=== PATIENT | male | born 1975 | race Caucasian/White ===

== ENCOUNTER 2016-09-24 05:12 | Emergency (ER) | payer BC ==
[2016-09-24 05:51] LABS: Hematocrit 44.8 % (42.0-52.0); Hemoglobin 15.4 gm/dL (13.5-18.0); Mean Corpuscular Hemoglobin 33.3 pg (27-31); Mean Corpuscular Hgb Conc 34.4 g/dl (32-36); Mean Platelet Volume 8.8 fl (6.0-9.5); Neutrophil # 4.3 K/mm3 (1.3-6.0); Neutrophil % 61.7 % (42-75.0); Platelet Count 234 K/mm3 (150-450); Red Blood Count 4.62 M/mm3 (4.7-6.0)
--- NOTE | 2016-09-24 05:52 | ERNOTE ---
Medical Problem HPI - Narrative Date of Service: 09/24/16 - General Chief Complaint: General Assessment Time Seen by Provider: 09/24/16 05:48 Source: patient, family Exam Limitations: no limitations - Immun/Allergies/Home Medications Immunizations: IMMUNIZATION HX Immunizations Up to Date Yes History of Influenza Vaccine No Hx Pneumococcal Vaccination No Allergies/Adverse Reactions: Allergies hydrocodone Allergy (Intermediate, Verified 09/24/16 05:33) Other RASH oxycodone Allergy (Intermediate, Verified 09/24/16 05:33) Other RASH prednisone Allergy (Intermediate, Verified 09/24/16 05:33) Other RASH Home Medications: HOME MEDICATIONS Clonazepam [Klonopin] 1 mg PO TID 10/25/13 [Last Taken Unknown] FLUoxetine HCL [Prozac] 60 mg PO DAILY 10/25/13 [Last Taken 10/24/13] traZODone HCL [Desyrel] 100 mg PO HS PRN 04/08/16 [Last Taken Unknown] Melatonin/Pyridoxine HCl (B6) [Melatonin 5 mg Tablet] 1 each PO HS 09/24/16 [ Last Taken Unknown] Multivitamin [One Daily Multivitamin] 1 each PO DAILY 09/24/16 [Last Taken Unknown] - History of Present History Narrative: STATES HE AWAKENED HER FROM A DEEP SLEEP ACTING 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 SHE TRIED TO AWAKEN HIM AND HE JUST MUTTERED AT HER WITHOUT MAKING SENSE AND IT WAS 20 MINS BEFORE HE AWAKENED. HE SAYS HE FEELS FINE EXCEPT HE IS TIRED. HE IS CURRENTLY A & O . HE DID HAVE A SEIZURE IN 2010 THAT HE SAYS WAS FULLY EVALUATED AND NOTHING FOUND. HE HAS HAD SOME INCREASED DEPRESSION LATELY AND SAW DR SANTOYO LAST WEEK AND WHICH TIME HE STOPPED ETOH WHICH HE HAD BEEN DOING FAIRLY HEAVILY FOR THE PAST 2 YEARS. HE ALSO HAD THE DOSE OF HIS ANXIETY MED, CLONAZEPAM INCREASED , FROM 1MG TO 2MG, AND WAS STARTED ON FLUOXETINE 60 MG. AND HAD HYDROCODONE 30 MG ER ADDED. HE DENIES ANY SYMPTOMS OF DT'S SINCE HE STOPPED ETOH LAST WEEK. Review of Systems - Review of Systems Constitutional: Present: See HPI EYE: Present: no symptoms reported ENT: Present: no symptoms reported Respiratory: Present: no symptoms reported Cardiology: Present: edema Gastrointestinal/Abdominal: Present: no symptoms reported Genitourinary: Present: no symptoms reported Musculoskeletal: Present: no symptoms reported Skin: Present: no symptoms reported Neurological: Present: See HPI Endocrine: Present: no symptoms reported Hematologic/Lymphatic: Present: no symptoms reported Psych: Present: See HPI All Other Systems: All systems neg except as marked - Patient's Past Medical History Patient History - Medical: Anxiety, Depression, Seizures Patient History - Cardiac/Respiratory: No pertinent hx Patient History - Cancer: No Hx of Cancer Patient History - Surgical Procedures: T & A, Other Patient History - Other: None - Family History Mother Family History - Medical: Arthritis, Kidney stone Family History - Cardiac/Respiratory: No pertinent hx Father Family History - Medical: Arthritis Family History - Cardiac/Respiratory: No pertinent hx Grandmother-Maternal Family History - Medical: No pertinent hx Family History - Cardiac/Respiratory: Myocardial Infarction - Social History Living Situations: home Abuse History: No History of abuse Psych History: Hx of Anxiety, Hx of Depression Smoking Status: Never smoker Have you smoked in the past 12 months: No Do you dip or chew tobacco: No Alcohol Use: heavy Drug Use: none - Immunizations Immunizations Up to Date: Yes Hx Pneumococcal Vaccination: No History of Influenza Vaccine: No Physical Exam - Physical Exam General Appearance: Present: wd/wn, alert - WANTS TO SLEEP BUT AROUSES EASILY AND IS COOPERATIVE, A & O . Eye Exam: Normal inspection: bilateral, PERRL: bilateral, EOMI: bilateral Ears, Nose, Throat: Present: normal ENT inspection Neck: Present: normal inspection Respiratory: Present: no respiratory distress, normal breath sounds, no accessory muscle use, chest nontender, lungs clear Cardiovascular/Chest: Present: regular rate, rhythm, no murmur Extremity Exam: Present: normal inspection, normal range of motion Neurological Exam: Present: alert, oriented, normal mood/affect, supervisor glycerin II-XII nml as tested. Absent: motor weakness, disoriented to person, disoriented to time, disoriented to place, disoriented to situation DTR: N=norm/NB=norm/brisk/A=abs/DD=dull/dimin/HC=hyperactive: Knee (R): Normal, Knee (L): Normal Skin Exam: Present: normal color ED Progress - Results and Orders Patient's Lab Results:: I have reviewed the patient's lab results. Results and Orders: LABS AND URINE AND ETOH = NEG. UDS = + FOR OPIATES. - Vital Signs Patient's Vital Signs:: I have reviewed the patient's vital signs. Vital Signs: Vital Signs 09/24/16 05:16 Temperature 36.9 C Pulse Rate 62 Respiratory 16 Rate Blood Pressure 118/75 O2 Sat by Pulse 94 Oximetry - CT/Ultrasound CT/Ultrasound Narrative: HEAD CT / DR VANEGAS = NEG. - Progress/Reassessment Chief Complaint: General Assessment Progress:: Improved - Transfer of Care Expected Disposition: Discharge Departure - Departure Clinical Impression: Altered mental status, unspecified Qualifiers: Altered mental status type: transient alteration of awareness Qualified Code(s) : R40.4 - Transient alteration of awareness Disposition: Home Follow Up Needed Condition: Good Instructions: Seizure, Adult, Inpx-[id number] Additional Instructions: I AM NOT SURE THAT THIS SPELL TODAY REPRESENTS A SEIZURE BUT UNTIL IT IS BETTER EXPLAINED IT SHOULD BE TREATED SUCH AND HE SHOULD GET RECHECKED BY THE FAMILY DOCTOR. NO DRIVING OR SWIMMING ALONE OR CLIMBING UNTIL THEY HAVE CLEARED YOU FROM RISK. THIS MAY BE A PROBLEM OF MEDICATION SIDE EFFECT WHICH MAY NEED MEDICATION ADJUSTMENTS SO TALK WITH THE WHO STARTED YOUR MEDICATIONS. Referrals: Mary Aguero FNP [Primary Care Provider] -
[2016-09-24 06:01] LABS: Urine Bilirubin Negative (NEGATIVE); Urine Blood Negative /ul (NEGATIVE); Urine Ketone Negative (NEGATIVE); Urine Nitrite Negative (NEGATIVE); Urine Protein Negative (NEGATIVE); Urine Specific Gravity 1.025 SP.GR. (1.005-1.030); Urine Urobilinogen Normal (NORMAL)
[2016-09-24 06:07] LABS: ALT 29 U/L (19-67); AST 17 U/L (0-48); Albumin * 3.5 gm/dl (3.4-5.0); Alkaline Phosphatase * 44 U/L (50-170); Anion Gap 9.8 mmol/L (6.8-13.8); BUN/Creatinine Ratio 17.6 (9.0-21.6); Bilirubin, Total 0.3 mg/dL (0.0-1.1); Blood Urea Nitrogen 18 mg/dL (6-23); Ca. Corrected For Albumin 9.1 mg/dL (8.4-10.2); Carbon Dioxide 29.4 mmol/L (24-32.6); Chloride 106 mmol/L (97-106); Glucose * 103 mg/dL (70-110); Potassium 4.2 mmol/L (3.4-4.6); Sodium 141 mmol/L (132-142); Total Protein 6.7 gm/dL (6.2-8.2)
[2016-09-24 06:11] LABS: Cocaine Ur Negative (NEGATIVE); Urine Barbiturate Negative (NEGATIVE); Urine Benzodiazepines Negative (NEGATIVE); Urine Opiates Positive (NEGATIVE); Urine PCP Negative (NEGATIVE); Urine THC Negative (NEGATIVE)
--- OUTSIDE RECORDS SUMMARY | 2016-09-24 06:17 | XMS REPORT | Continuity of Care Document ---
:1975 Author Organization [facility] ([facility]) Address [address] [place] [address] Phone [phone] Care Team Providers Name Role Phone Mary Aguero Primary Care Provider [phone] Source Comments This disclosure is being made pursuant to the Care Everywhere program, applicable federal and state laws, and may not contain all informaitonavailable regarding this patient.[facility] ([facility]) Active Allergies and Adverse Reactions Allergen Noted Date Severity Reactions Comments Prednisone 08/13/2016 Rash Current Medications Prescription Sig. Disp. Refills Start Date End Date Status HYDROcodone-acetaminophen Take 1 Tab by Active 5-325 mg per tablet mouth every 4 hours as needed. multivitamin tablet Take 1 Tab by Active mouth daily. melatonin 3 mg tablet Take 3 mg by mouth Active at bedtime. traZODone 100 mg tablet Take 100 mg by Active mouth at bedtime. Takes one-half tab at bedtime meloxicam 7.5 mg tablet Take 7.5 mg by Active mouth 2 times daily. clonazePAM 1 mg tablet Take 1 mg by mouth Active 3 times daily. cholecalciferol (VITAMIN Take 2,000 Units Active D3) 2,000 unit capsule by mouth daily. cyanocobalamin (VITAMIN Take 1,000 mcg by Active B-12) 1,000 mcg tablet mouth daily. vitamin B complex tablet Take 1 tablet by Active mouth daily. sulindac 200 mg tablet Take 200 mg by 3 05/21/2016 Active mouth 2 times daily with meals. FLUoxetine 60 mg tablet Take 60 mg by 5 08/09/2016 Active mouth every morning. Active Problems Patient Care Coordination Note with left knee claim from an injury at work on 07/12/2008. He was placed at [facility] on 07/02/2013. His knee pain is treated with periodic injections of local anesthetic with corticosteroid, or Synvisc/GelOne. Problem Noted Date H/O 05/21/2009 left knee arthroscopy with partial lateral meniscectomy and 06/2013 chondroplasty of the patella Left knee pain 10/01/2013 Last Assessment & Plan: Continue NSAIDs as prescribed by his primary care physician. Chondromalacia of patellofemoral joint 01/11/2013 Last Assessment & Plan: He has had a very good response to Synvisc. He was instructed to continue walking, but not progress to jogging for another two months. At the end of the second month, he can start to jog slowly. Hecan continue the treadmill for now, and can progress to an incline if he wishes. He needs to pay attention to what might cause his knee to be uncomfortable. Arthritis of knee, left 01/08/2013 Last Assessment & Plan: Formatting of this note may be different from the original. 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 MMI 07/02/2013 without restrictions. Last Assessment & Plan: Selvin Lance may continue to work without restrictions with regard to his right knee. History of diagnostics and therapeutics left knee 01/01/2013 Overview: 04/25/2002 prior to the workers compensation injury, patient complained of left knee pain off and on since 1995. X-rays of the left knee show mild degenerative joint disease particularly affecting th e patellofemoral and medial compartments which is slightly worse than x-rays obtained on 10/20/2000 and the patient was last seen for similar complaints. He states his left knee catches and gives way , he has patellofemoral arthralgia with crepitance, he has synovitis, directl pain, positive Marly testing and swelling. 05/21/2002 arthroscopic partial lateral meniscectomy, chondroplasty of the patella, and medial and lateral femoral condyles and lateral tibial plateau, and partial synovectomy. There were several sm all pieces of cartilage free floating in the suprapatellar space. There was grade 2/3 chondromalacia affecting both the medial and lateral facets of the patella. No evidence of tear or displacement of the medial meniscus. Grade one chondromalacia of the weightbearing surface of the medial femoral condyle. Grade 2 chondromalacia of the weightbearing surfaces of the lateral femoral condyle and l ateral tibial plateau. Chondroplasty of the lateral femoral condyle and lateral tibial plateau accomplished using combination of the orbital centimeter , turbo-whisker, and thermal probe. Chondroplas ty of the medial femoral condyles accomplished using a combination of turbo- whisker and thermal probe. 09/04/2008 MRI of the left knee, some abnormal appearanceof anterior horn of the lateral meniscus. 09/13/2008 injection of local anesthetic and corticosteroid. He later reported the injection worked for a week and a half and then his symptoms returned. 11/08/2008 left knee injected with Hyalgan. 11/15/2008 left knee injection with Hyalgan. 11/21/2008 left knee injected with Hyalgan. 11/28/2008 left knee injected with Hyalgan 05/21/2009 left knee arthroscopy with partial lateral meniscectomy and chondroplasty of the patella. Articular cartilage within the lateral compartment was intact and pristine. Articular cartilage w ithin the medial compartment was minimally degenerative. Patellofemoral joint had rather extensive grade 2-3 degenerative joint disease changes on the undersurface of the patella. 03/19/2013 [facility] left knee 10/01/2013 [facility] left knee Last Assessment & Plan: 04/25/2002 prior to the workers compensation injury, patient complained of left knee pain off and on since 1995. X-rays of the left knee show mild degenerative joint disease particularly affecting th e patellofemoral and medial compartments which is slightly worse than x-rays obtained on 10/20/2000 and the patient was last seen for similar complaints. He states his left knee catches and gives way , he has patellofemoral arthralgia with crepitance, he has synovitis, directly pain, positive Marly testing and swelling. 05/21/2002 arthroscopic partial lateral meniscectomy, chondroplasty of th e patella, and medial and lateral femoral condyles and lateral tibial plateau, and partial synovectomy. There were several small pieces of cartilage free floating in the suprapatellar space. There w as grade 2/3 chondromalacia affecting both the medial and lateral facets of the patella. No evidence of tear or displacement of the medial meniscus. Grade one chondromalacia of the weightbearing juliette face of the medial femoral condyle. Grade 2 chondromalacia of the weightbearing surfaces of the lateral femoral condyle and lateral tibial plateau. Chondroplasty of the lateral femoral condyle and l ateral tibial plateau accomplished using combination of the orbital centimeter , turbo-whisker, and thermal probe. Chondroplasty of the medial femoral condyles accomplished using a combination of turbo-whisker and thermal probe. 09/04/2008 MRI of the left knee, some abnormal appearanceof anterior horn of the lateral meniscus. 09/13/2008 injection of local anesthetic and corticosteroid. He later reported the injection worked for a week and a half and then his symptoms returned. 11/08/2008 left knee injected with Hyalgan. 11/15/2008 left knee injection with Hyalgan. 11/21/2008 left knee injected with Hyalgan. 11/28/2008 left knee injected with Hyalgan 05/21/2009 left knee arthroscopy with partial lateral meniscectomy and chondroplasty of the patella. Articular cartilage within the lateral compartment was intact and pristine. Articular cartilage w ithin the medial compartment was minimally degenerative. Patellofemoral joint had rather extensive grade 2-3 degenerative joint disease changes on the undersurface of the patella. Resolved Problems Problem Noted Date Resolved Date Back pain 06/04/2013 06/04/2013 Most Recent Encounters Date Type Specialty Providers Description 08/13/2016 Hospital Encounter Radiology Benjy Jean MD Dx: Hip pain 08/13/2016 Office Visit Orthopaedic Polo Salamanca MD Dx: Hip pain ( Primary Dx) 07/27/2016 Hospital Encounter Radiology Benjy Jean MD Chief Comp: Patient Reported Reason For Visit Social History Tobacco Use Types Packs/Day Years Used Date Never Smoker Smokeless Tobacco: Never Used Tobacco Cessation:Counseling Given: Yes Comments: Last Filed Vital Signs Vital Sign Reading Time Taken Blood Pressure 120/66 08/13/2016 9:27 AM CDT Pulse 70 08/13/2016 9:27 AM CDT Temperature 37 C (98.6 F) 08/13/2016 9:27 AM CDT Respiratory Rate - - Height 1.88 m (6' 2.02") 08/13/2016 9:27 AM CDT Weight 111.5 kg (245 lb 13 oz) 08/13/2016 9:27 AM CDT Body Mass Index 31.55 08/13/2016 9:27 AM CDT Oxygen Saturation - - Plan of Care Date Type Specialty Providers Description 10/28/2016 Wait List Orthopaedic 10/28/2016 Appointment Orthopaedic Remberto Wray MD Chief Comp: Patient [address] [place] [address] [phone] (Fax) Health Maintenance Due Date Last Done Comments Hepatitis B Vaccine (1 of 3 - Primary Series) 1975 Tdap Vaccine 1984 Lipid Disorder Screening 08/22/1991 MMR Vaccine 08/22/1991 Td Vaccine 08/22/1991 Influenza Vaccine: Seasonal (Season Ended) 2016 Results from Last 3 Months PELVIS LAURA SERIES (08/13/2016 9:20 AM) Impressions Findings / Impression: Mild uncovering of the right lateral femoral head. Center edge angle measures 18 degrees on the right and 36 degrees on the left. Normal pelvic alignment otherwise. Narrative Procedure: PELVIS LAURA SERIES Clinical Indication: Hip dysplasia evaluation. Comparison: None. Procedure Note Ronald, Incoming Imaging Results - TueAugust 13, 2016 12:50 PM CDT Procedure: PELVIS LAURA SERIES Clinical Indication: Hip dysplasia evaluation. Comparison: None. IMPRESSION Findings / Impression: Mild uncovering of the right lateral femoral head. Center edge angle measures 18 degrees on the right and 36 degrees on the left. Normal pelvic alignment otherwise. EXTERNAL PL FILMS - STORE ONLY (07/27/2016 2:13 PM)
[2016-09-24 06:28] LABS: Urine Appearance Clear; Urine Bacteria TRACE; Urine Color Yellow; Urine RBC None Seen /hpf (0-5); Urine WBC None Seen /hpf (0-5)
[2016-09-24 07:02] VITALS: BP 110/65
== END 2016-09-24 07:17 | disposition home or self-care (01) ==
LOC: ER 05:12
DX: R40.4 Transient alteration of awareness (principal); R56.9 Unspecified convulsions; F32.9 Major depressive disorder, single episode, unspecified
CPT/HCPCS: 36415; 70450; 80053; 80307; 81001; 85025; 99282; G0481